=== PATIENT | female | born 1995 | race Caucasian/White ===

== ENCOUNTER 2022-06-26 08:12 | Emergency (ER) | payer SELFPAY ==
[~2022-06-26] VITALS: Ht 152.4 cm; Wt 40.8 kg
--- NOTE | 2022-06-26 08:33 | NUR ---
DR Piña at the bedside for MSE.
[2022-06-26 08:45] LABS: HEMATOCRIT 35.5 % (31.2-41.9); MEAN CORPUSCULAR HEMOGLOBIN 28.3 uug (24.7-32.8); MEAN CORPUSCULAR VOLUME 87.3 fL (75.5-95.3); PLATELET COUNT (AUTO) 231 K/uL (179-408)
[2022-06-26 08:57] LABS: CARBON DIOXIDE 27 mmol/L (21-32); CHLORIDE 103 mmol/L (98-107); CREATININE 0.7 mg/dL (0.6-1.3); GLUCOSE 97 mg/dL (74-106); POTASSIUM 3.8 mmol/L (3.5-5.1); UREA NITROGEN, BLOOD 11 mg/dL (7-18)
--- NOTE | 2022-06-26 11:00 | NUR ---
No new/acute bleeding noted.
[2022-06-26] MEDS ORDERED: OXYM15MI4 NS (11:01)
--- NOTE | 2022-06-26 11:05 | NUR ---
IV removed. Catheter intact and site benign. Pressure and 4x4 gauze applied to site. No bleeding noted.
[2022-06-26 11:14] VITALS: BP 120/67
--- NOTE | 2022-06-26 11:17 | NUR ---
Patient discharged to home in stable condition. Written and verbal after care instructions given. Patient verbalizes understanding of instructions. Stressed follow up or return to ER for worsening s/s.
== END 2022-06-26 11:17 | disposition home or self-care (01) ==
LOC: ER 08:12
DX: R04.0 Epistaxis (principal); R42 Dizziness and giddiness; Z98.890 Other specified postprocedural states
CPT/HCPCS: 36415; 85025; A4663